=== PATIENT | female | born 2005 | race Asian ===

== ENCOUNTER 2024-06-17 01:51 | Emergency (ER) | payer OTHER, SELFPAY ==
[2024-06-17 01:53] VITALS: BP 112/53; PULSE 76; RESP 16; TEMP 36.1; O2SAT 100; BMI 23.8
--- NOTE | 2024-06-17 02:22 | EX.ED.DYSGE1 ---
HPI History of Present Illness Chief Complaint: ETOH Intox Informant: patient and EMS Narrative Narrative: 18-year-old [employer] who was drinking heavily tonight and got too intoxicated and apparently passed out so EMS was called. She states she vomited, she feels a little nauseated now, she denies any pain. She denies using any drugs. She denies any suicidality. PFSH PFSH Medical History no medical history no medical history Home Medications ?Medication ?Instructions ?Recorded ?Last Taken ?Type Unobtainable 06/17/24 Unknown History Allergy/AdvReac Type Severity Reaction Status Date / Time Unable to Assess Allergy Verified 06/17/24 01:52 Social History Smoking Status: Unknown if ever smoked ROS ROS ED Review of Systems ROS Unobtainable: other Details: Intoxicated and somnolent Constitutional Constitutional ED: Denies fever(s) Cardiovascular Cardiovascular: Denies chest pain Respiratory/Chest Respiratory/Chest: Denies dyspnea Gastrointestinal Gastrointestinal: Reports nausea and vomiting; Denies abdominal pain Neurologic Neurologic: Denies headache(s) or weakness EXAM Physical Exam Const Vital Signs: 06/17/24 01:53 Temperature 97 F L Temperature Source Temporal Pulse Rate 76 Respiratory Rate 16 Blood Pressure 112/53 L Blood Pressure Mean 72 Pulse Ox 100 Positive well nourished and well developed General Appearance ED: well developed and NAD HEENT Reports moist mucous membranes normocephalic and atraumatic Eyes PERRL and EOMs intact bilaterally Neck full ROM and supple Resp normal respiratory effort and clear to auscultation bilaterally Cardio regular rate, regular rhythm and no murmurs GI non-tender and non-distended Auscultation: normoactive bowel sounds Palpation: soft Back/Spine no CVA tenderness General Back: other FROM Extremity normal to inspection General Extremety ED: Negative for edema, pulses abnormal or tenderness General Extremity: Negative for edema or pulses abnormal Neuro CN's II-XII intact bilaterally and no sensory deficits noted Neuro Narrative: Intoxicated, horizontal nystagmus, easily alerts to voice. GCS 14. Sensorium / Orientation: awake and alert Motor Exam: strength 5/5 throughout Skin no rashes or lesions noted and no wounds MDM MDM MDM Narrative Medical decision making narrative: Alcohol level is 147, certainly not in a life-threatening range, is negative. Her vital signs are normal, so she is being given IV fluids, Zofran and will be observed until more awake and able to ambulate. Lab Data Attestation: I reviewed the patient's lab results. Labs: Laboratory Results - last 24 hr 06/17/24 02:30 Serum , Qual NEGATIVE Ethyl Alcohol 147.0 Discharge Plan Triage Chief Complaint: ETOH Intox ED Provider: Umair London Dx/Rx/DC Orders Clinical Impression: Alcohol intoxication Instructions: ED Alcohol Intoxication Prescriptions: No Action Unobtainable Primary Care Provider: NOT,DEFINED Referrals: NOT,DEFINED [Primary Care Provider] - Print Language: Argentine Disposition Disposition: Home, Self Care
[2024-06-17] MEDS: 0.9% Normal Saline (1000mL) 1,000 ML 999 ML IV (02:28)
[2024-06-17] MEDS: Ondansetron 4 MG/2 ML Vial IV (02:28)
[2024-06-17 02:58] LABS: Internal QC Validated? YES +Cl - CLEAR BKGD; Pregnancy, Serum, hCG Quali. NEGATIVE Negative
[2024-06-17 03:52] VITALS: BP 96/55; PULSE 84; RESP 14; O2SAT 100
[2024-06-17 05:00] VITALS: BP 94/61; PULSE 65; RESP 14; O2SAT 100
[2024-06-17 07:00] VITALS: BP 98/64; PULSE 61; RESP 16; O2SAT 98
[2024-06-17 07:17] VITALS: BP 98/64; PULSE 61; RESP 16; TEMP 36.4; O2SAT 98
== END 2024-06-17 07:52 | disposition home or self-care (01) ==
LOC: ED 07:24
PROVIDERS: Emergency Provider Emergency Medicine; PCP Family Medicine; Visit Provider Emergency Medicine
DX: F10.129 Alcohol abuse with intoxication, unspecified (principal); Y90.6 Blood alcohol level of 120-199 mg/100 ml
CPT/HCPCS: 82077; 84703; 96361; 96374; 99282; J7030; J2405

== ENCOUNTER 2024-07-04 11:47 | Emergency (ER) | payer OTHER, SELFPAY ==
[2024-07-04 11:48] VITALS: BP 117/82; PULSE 82; RESP 16; TEMP 36.8; O2SAT 98; BMI 24.2
--- NOTE | 2024-07-04 12:27 | ED.RN ---
Pt. stated I think I feel better when this RN went into assess patient. This RN asked if patient still wanted to be seen by a Dr. Pt. stated My head still hurts but feels a lot better, I am going to go home and rest. Dr. Galvan notified
--- NOTE | 2024-07-04 12:31 | EX.ED.DYSGE1 ---
HPI History of Present Illness Chief Complaint: Syncope PFSH PFSH Home Medications ?Medication ?Instructions ?Recorded ?Last Taken ?Type Unobtainable 06/17/24 Unknown History Allergy/AdvReac Type Severity Reaction Status Date / Time Unable to Assess Allergy Verified 07/04/24 11:50 Social History Smoking Status: Unknown if ever smoked EXAM Physical Exam Const Vital Signs: 07/04/24 11:48 Temperature 98.2 F Temperature Source Temporal Pulse Rate 82 Respiratory Rate 16 Blood Pressure 117/82 H Blood Pressure Mean 93 Pulse Ox 98 Oxygen Delivery Method Room Air MDM MDM MDM Narrative Medical decision making narrative: After signing up for the patient nursing staff approached me stating that the patient did not want to be seen and eloped. I did not personally examine or speak to the patient. Patient had already left when I was informed. I was told by nursing that patient stated that she felt better and this is why she left. Discharge Plan Triage Chief Complaint: Syncope Other Complaint: Head Injury ED Provider: Christopher Mcmillan Dx/Rx/DC Orders Prescriptions: No Action Unobtainable Primary Care Provider: Alec Hills Referrals: Alec Hills MD [Primary Care Provider] - Print Language: Indonesian
== END 2024-07-04 13:12 | disposition left against medical advice (07) ==
LOC: ED 13:10
PROVIDERS: Emergency Provider Surgery; PCP Family Medicine; Visit Provider Surgery
DX: Z53.21 Procedure and treatment not carried out due to patient leaving prior to being seen by health care provider (principal)
CPT/HCPCS: 99283